=== PATIENT | female | born 1995 | race American Indian/Alaskan Native ===

== ENCOUNTER 2019-01-03 20:09 | Emergency (ER) | payer SELFPAY ==
--- NOTE | 2019-01-03 20:16 | Event Note ---
ED Screening Note Date of service: 01/03/19 Time: 20:15 ED Screening Note: 23 y/o female c/o pain with urination. No vag d/c. LMP 12/11/18. . This initial assessment/diagnostic orders/clinical plan/treatment(s) is/are subject to change based on patients health status, clinical progression and re- assessment by fellow clinical providers in the ED. Further treatment and workup at subsequent clinical providers discretion. Patient/guardian urged not to elope from the ED as their condition may be serious if not clinically assessed and managed. Initial orders include:
[2019-01-03 20:19] VITALS: BP 126/82
[2019-01-03 21:13] LABS: Bilirubin,Urine NEG (Negative); Blood,Urine MOD (Negative); Color,Urine Yellow (Yellow); Mucus,Urine 1+ /HPF
[2019-01-03 21:14] LABS: WBC,Urine > 182.0 /HPF (0.0-6.0)
[2019-01-03 21:15] LABS: HCG Qualitative,Urine Negative (Negative)
--- NOTE | 2019-01-03 21:32 | Emergency Department Report ---
ED Female HPI - General Chief complaint: Urogenital-Female Stated complaint: POSS UTI Time Seen by Provider: 01/03/19 20:14 Source: patient Mode of arrival: Ambulatory Limitations: No Limitations - History of Present Illness Initial comments: pt is a 23 y/o aaf who presents for dysuria frequency and urgency denies vaginal discharge no fever no chills no n/v no back pain or cva tenderness. MD Complaint: dysuria Onset/Timin -: days(s) Severity: moderate Severity scale (0 -10): 3 Quality: other (dysuria ) Consistency: intermittent Improves with: none Worsens with: urination Are you Now?: No Last Menstrual Period: 01/01/19 EDC: 10/08/19 Associated Symptoms: dysuria - Related Data Sexually active: Yes : 1 Para: 1 A: 0 Previous Rx's Medication Instructions Recorded Last Taken Type Ciprofloxacin HCl [Ciprofloxacin 500 mg PO Q12H #20 tab 04/18/18 Unknown Rx TAB] Ibuprofen [Motrin 800 MG tab] 800 mg PO Q8HR PRN #20 tablet 04/18/18 Unknown Rx traMADol [Ultram] 50 mg PO Q6HR PRN #10 tablet 04/18/18 Unknown Rx Nitrofurantoin [place]/M-Cryst 100 mg PO Q12HR 7 Days #14 capsule 01/03/19 Unknown Rx [Macrobid CAP] Phenazopyridine [Pyridium] 100 mg PO TID #6 tab 01/03/19 Unknown Rx Allergies Allergy/AdvReac Type Severity Reaction Status Date / Time No Known Allergies Allergy Unverified 04/18/18 18:00 ED Review of Systems ROS: Stated complaint: POSS UTI Other details as noted in HPI Constitutional: denies: chills, fever Eyes: denies: eye pain, eye discharge, vision change ENT: denies: ear pain, throat pain Respiratory: no symptoms reported Cardiovascular: denies: chest pain, palpitations Endocrine: no symptoms reported Gastrointestinal: denies: abdominal pain, nausea, diarrhea Genitourinary: urgency, dysuria, frequency. denies: hematuria, discharge, abnormal menses, dyspareunia Musculoskeletal: denies: back pain, joint swelling, arthralgia Skin: denies: rash, lesions Neurological: denies: headache, weakness, paresthesias Psychiatric: denies: anxiety, depression Hematological/Lymphatic: denies: easy bleeding, easy bruising ED Past Medical Hx - Past Medical History Previous Medical History?: No - Surgical History Past Surgical History?: No - Social History Smoking Status: Never Smoker Substance Use Type: None - Medications Home Medications: Home Medications Medication Instructions Recorded Confirmed Last Taken Type Ciprofloxacin HCl [Ciprofloxacin 500 mg PO Q12H #20 tab 04/18/18 Unknown Rx TAB] Ibuprofen [Motrin 800 MG tab] 800 mg PO Q8HR PRN #20 tablet 04/18/18 Unknown Rx traMADol [Ultram] 50 mg PO Q6HR PRN #10 tablet 04/18/18 Unknown Rx Nitrofurantoin [place]/M-Cryst 100 mg PO Q12HR 7 Days #14 capsule 01/03/19 Unknown Rx [Macrobid CAP] Phenazopyridine [Pyridium] 100 mg PO TID #6 tab 01/03/19 Unknown Rx ED Physical Exam - General Limitations: No Limitations General appearance: alert, in no apparent distress - Head Head exam: Present: atraumatic, normocephalic - Eye Eye exam: Present: normal appearance, PERRL, EOMI Pupils: Present: normal accommodation - ENT ENT exam: Present: mucous membranes moist - Neck Neck exam: Present: normal inspection, full ROM. Absent: tenderness - Respiratory Respiratory exam: Present: normal lung sounds bilaterally. Absent: respiratory distress, wheezes, stridor - Cardiovascular Cardiovascular Exam: Present: regular rate, normal rhythm, normal heart sounds. Absent: systolic murmur, diastolic murmur, rubs, gallop - GI/Abdominal GI/Abdominal exam: Present: soft, normal bowel sounds. Absent: distended, tenderness, bruit, hernia - Rectal Rectal exam: Present: deferred - External exam: Present: other (deferred by patient ) - Extremities Exam Extremities exam: Present: normal inspection, full ROM, tenderness, normal capillary refill. Absent: calf tenderness - Back Exam Back exam: Present: normal inspection, full ROM. Absent: tenderness, CVA tenderness (R), CVA tenderness (L), muscle spasm, paraspinal tenderness, vertebral tenderness, rash noted - Neurological Exam Neurological exam: Present: alert, oriented X3, CN II-XII intact, normal gait - Psychiatric Psychiatric exam: Present: normal affect, normal mood - Skin Skin exam: Present: warm, dry, intact, normal color. Absent: rash ED Course Vital Signs 01/03/19 20:13 Temperature 98.8 F Pulse Rate 105 H Respiratory 18 Rate Blood Pressure 126/82 O2 Sat by Pulse 97 Oximetry ED Medical Decision Making - Lab Data Labs 01/03/19 20:29 Urine Color Yellow Urine Turbidity Cloudy Urine pH 7.0 Ur Specific [place] 1.020 Urine Protein 100 mg/dl Urine Glucose (UA) Neg Urine Ketones Neg Urine Blood Mod Urine Nitrite Neg Urine Bilirubin Neg Urine Urobilinogen 4.0 Ur Leukocyte Esterase Mod Urine WBC (Auto) > 182.0 H Urine RBC (Auto) 87.0 U Epithel Cells (Auto) 11.0 Ur Transition Epith Cell 2 Urine Mucus 1+ Urine HCG, Qual Negative - Medical Decision Making this is a UTI , pt denies vaginal discharge no vagina bleeding, no n/v no fever or chill no cva tenderness no concern for STI Critical care attestation.: If time is entered above; I have spent that time in minutes in the direct care of this critically ill patient, excluding procedure time. ED Disposition Clinical Impression: UTI (urinary tract infection) Qualifiers: Urinary tract infection type: acute cystitis Hematuria presence: with hematuria Qualified Code(s): N30.01 - Acute cystitis with hematuria Disposition: TO HOME OR SELFCARE Is pt being admited?: No Does the pt Need Aspirin: No Condition: Stable Prescriptions: Nitrofurantoin [place]/M-Cryst [Macrobid CAP] 100 mg PO Q12HR 7 Days #14 capsule Phenazopyridine [Pyridium] 100 mg PO TID #6 tab Referrals: ADRIANA BARRIOS MD [Primary Care Provider] - 3-5 Days Forms: Work/School Release Form(ED) Time of Disposition: 21:37
== END 2019-01-03 21:47 | disposition home or self-care (01) ==
LOC: ED 20:09
DX: N39.0 Urinary tract infection, site not specified (principal); Z79.899 Other long term (current) drug therapy
CPT/HCPCS: 81001; 81025; 99283

== ENCOUNTER 2019-05-20 16:54 | Emergency (ER) | payer MEDICAID ==
[2019-05-20 22:14] VITALS: BP 109/82
[2019-05-20 23:08] LABS: Bilirubin,Urine NEG (Negative); Blood,Urine MOD (Negative); Color,Urine Yellow (Yellow); Mucus,Urine 3+ /HPF; Urobilinogen,Urine < 2.0 mg/dL (<2.0)
[2019-05-20 23:09] LABS: WBC,Urine > 182.0 /HPF (0.0-6.0)
[2019-05-20 23:11] LABS: HCG Qualitative,Urine Negative (Negative)
[2019-05-21] MEDS: IBUPROFEN 600 MG TAB PO ONE (00:09)
[2019-05-21] MEDS: ACETAMINOPHEN 500 MG TAB PO ONE (00:10)
[2019-05-21] MEDS: LIDOCAINE-MPF (1%) 10 MG/1 ML VIAL 5 ML INFILTRATI ONE (00:11)
--- NOTE | 2019-05-21 00:59 | Emergency Department Report ---
ED Female HPI - General Chief complaint: Abdominal Pain Stated complaint: UTI Source: patient Mode of arrival: Ambulatory Limitations: No Limitations - History of Present Illness Initial comments: Patient is a A0 24-year-old -British female with no past medical history who presents to the ED with complaint of acute onset of persistent dysuria, urinary frequency and urgency, low back pain and bilateral flank pain with suprapubic pain for the last 1 week, worse in the last 2 days. Patient admits that she does not drink water but loves sodas. Patient denies vaginal bleeding, vaginal discharge, dyspareunia, nausea, vomiting, diarrhea, dizziness, chest pain, shortness of breath, fever and chills. MD Complaint: dysuria, pelvic pain, other (bilateral lower back pain) -: Sudden, week(s) (1) Location: suprapubic, other (bilateral lower back) Radiation: suprapubic, L flank, R flank Severity: severe Severity scale (0 -10): 7 Quality: sharp, aching Consistency: constant Improves with: none Worsens with: urination, movement Are you Now?: No Last Menstrual Period: 04/28/19 EDC: 02/02/20 Associated Symptoms: denies other symptoms, abdominal pain (suprapubic), dysuria. denies: vaginal discharge, vaginal bleeding, nausea/vomiting, fever/chills, headaches, loss of appetite, hematuria, rash, seizure, shortness of breath, syncope, weakness - Related Data Sexually active: Yes : 1 Para: 1 A: 0 Previous Rx's Medication Instructions Recorded Last Taken Type Ciprofloxacin HCl [Ciprofloxacin 500 mg PO Q12H #20 tab 04/18/18 Unknown Rx TAB] Ibuprofen [Motrin 800 MG tab] 800 mg PO Q8HR PRN #20 tablet 04/18/18 Unknown Rx traMADoL [Ultram] 50 mg PO Q6HR PRN #10 tablet 04/18/18 Unknown Rx Nitrofurantoin [place]/M-Cryst 100 mg PO Q12HR 7 Days #14 capsule 01/03/19 Unknown Rx [Macrobid CAP] Phenazopyridine [Pyridium] 100 mg PO TID #6 tab 01/03/19 Unknown Rx Ibuprofen [Motrin] 600 mg PO Q8H PRN #20 tablet 05/21/19 Unknown Rx Phenazopyridine [Pyridium] 200 mg PO Q8H PRN #21 tab 05/21/19 Unknown Rx cephALEXin [Keflex] 500 mg PO Q6HR #40 capsule 05/21/19 Unknown Rx Allergies Allergy/AdvReac Type Severity Reaction Status Date / Time No Known Allergies Allergy Unverified 04/18/18 18:00 ED Review of Systems ROS: Stated complaint: UTI Other details as noted in HPI Constitutional: denies: chills, fever Eyes: denies: eye pain, eye discharge, vision change ENT: denies: ear pain, throat pain Respiratory: denies: cough, shortness of breath, wheezing Cardiovascular: denies: chest pain, palpitations Endocrine: no symptoms reported Gastrointestinal: abdominal pain (suprapubic). denies: nausea, diarrhea Genitourinary: urgency, dysuria, frequency, other (suprapubic pain). denies: discharge, abnormal menses, dyspareunia Musculoskeletal: denies: back pain, joint swelling, arthralgia Skin: denies: rash, lesions Neurological: denies: headache, weakness, paresthesias Psychiatric: denies: anxiety, depression Hematological/Lymphatic: denies: easy bleeding, easy bruising ED Past Medical Hx - Past Medical History Previous Medical History?: Yes Hx Psychiatric Treatment: Yes (bipolar) - Surgical History Past Surgical History?: No - Social History Smoking Status: Never Smoker Substance Use Type: None - Medications Home Medications: Home Medications Medication Instructions Recorded Confirmed Last Taken Type Ciprofloxacin HCl [Ciprofloxacin 500 mg PO Q12H #20 tab 04/18/18 Unknown Rx TAB] Ibuprofen [Motrin 800 MG tab] 800 mg PO Q8HR PRN #20 tablet 04/18/18 Unknown Rx traMADoL [Ultram] 50 mg PO Q6HR PRN #10 tablet 04/18/18 Unknown Rx Nitrofurantoin [place]/M-Cryst 100 mg PO Q12HR 7 Days #14 capsule 01/03/19 Unknown Rx [Macrobid CAP] Phenazopyridine [Pyridium] 100 mg PO TID #6 tab 01/03/19 Unknown Rx Ibuprofen [Motrin] 600 mg PO Q8H PRN #20 tablet 05/21/19 Unknown Rx Phenazopyridine [Pyridium] 200 mg PO Q8H PRN #21 tab 05/21/19 Unknown Rx cephALEXin [Keflex] 500 mg PO Q6HR #40 capsule 05/21/19 Unknown Rx ED Physical Exam - General Limitations: No Limitations General appearance: alert, in no apparent distress - Head Head exam: Present: atraumatic, normocephalic - Eye Eye exam: Present: normal appearance, PERRL, EOMI Pupils: Present: normal accommodation - ENT ENT exam: Present: normal exam, normal orophraynx, mucous membranes moist, TM's normal bilaterally, normal external ear exam - Neck Neck exam: Present: normal inspection, full ROM - Respiratory Respiratory exam: Present: normal lung sounds bilaterally. Absent: respiratory distress, wheezes, rales, rhonchi, chest wall tenderness, accessory muscle use, decreased breath sounds - Cardiovascular Cardiovascular Exam: Present: regular rate, normal rhythm, normal heart sounds. Absent: systolic murmur, diastolic murmur, rubs, gallop - GI/Abdominal GI/Abdominal exam: Present: soft, tenderness (suprapubic), normal bowel sounds. Absent: guarding, rebound, hyperactive bowel sounds - Extremities Exam Extremities exam: Present: normal inspection, full ROM, normal capillary refill - Back Exam Back exam: Present: normal inspection, full ROM. Absent: tenderness, muscle spasm, paraspinal tenderness, vertebral tenderness - Neurological Exam Neurological exam: Present: alert, oriented X3, CN II-XII intact, normal gait, reflexes normal - Psychiatric Psychiatric exam: Present: normal affect, normal mood - Skin Skin exam: Present: warm, dry, intact, normal color. Absent: rash ED Course Vital Signs 05/20/19 17:50 Temperature 98.3 F Pulse Rate 100 H Respiratory 18 Rate Blood Pressure 109/82 O2 Sat by Pulse 100 Oximetry ED Medical Decision Making - Medical Decision Making This is a A0 24-year-old female who presented to the ED with dysuria, urinary frequency and urgency, suprapubic pressure and low back pain with hematuria for the last 1 week. In the ED: The patient is alert and oriented 3 and is in distress. Urinalysis shows significant urinary tract infection with hematuria. The patient was too thin to ED with Rocephin 1 g intramuscular injection. Patient was discharged home on antibiotics and pain medications and is advised to follow-up with her primary care physician in 7-10 days for reevaluation. Patient is encouraged to drink plenty of fluids as a habit to prevent frequent UTIs. - Differential Diagnosis UTI; Ovarian cysts; STD; kidney stones Critical care attestation.: If time is entered above; I have spent that time in minutes in the direct care of this critically ill patient, excluding procedure time. ED Disposition Clinical Impression: Acute urinary tract infection, Acute suprapubic pain Disposition: TO HOME OR SELFCARE Is pt being admited?: No Does the pt Need Aspirin: No Condition: Stable Instructions: Abdominal Pain (ED), Urinary Tract Infection in Women (ED) Additional Instructions: Take medications with food, drink plenty of fluids and follow-up with your primary care physician in 5-7 days for reevaluation. Return to the ED immediately if symptoms get worse. Prescriptions: cephALEXin [Keflex] 500 mg PO Q6HR #40 capsule Ibuprofen [Motrin] 600 mg PO Q8H PRN #20 tablet PRN Reason: Pain Phenazopyridine [Pyridium] 200 mg PO Q8H PRN #21 tab PRN Reason: dysuria Referrals: RADHA MEZA MD [Primary Care Provider] - 3-5 Days Time of Disposition: 01:00 Print Language: MONEGASQUE
== END 2019-05-21 01:10 | disposition home or self-care (01) ==
LOC: ED 16:54
DX: N39.0 Urinary tract infection, site not specified (principal); R10.30 Lower abdominal pain, unspecified; F31.9 Bipolar disorder, unspecified; Z79.1 Long term (current) use of non-steroidal anti-inflammatories (NSAID); Z79.899 Other long term (current) drug therapy
CPT/HCPCS: 81001; 81025; 96372; 99283; J0696

== ENCOUNTER 2020-05-11 18:31 | Outpatient (CLI) | payer MEDICAID ==
[2020-05-11 19:20] VITALS: BP 119/70
--- NOTE | 2020-05-11 21:28 | Ultrasound Report ---
ULTRASOUND OBSTETRIC LIMITED ULTRASOUND BIOPHYSICAL PROFILE INDICATION / CLINICAL INFORMATION: BPP. Clinical Gestational Age (GA): 37 weeks. 2 days COMPARISON: None available. FINDINGS: BREATHING MOVEMENT = 2 GROSS BODY MOVEMENT = 2 TONE = 2 QUALITATIVE AMNIOTIC FLUID VOLUME = 2 TOTAL BIOPHYSICAL SCORE = 8/8 HEART RATE (beats per minute): 129 AMNIOTIC FLUID INDEX (cm) = 9.4 (normal = 7-24 cm) PRESENTATION: Cephalic. ADDITIONAL FINDINGS: None. IMPRESSION: 1. Biophysical Score = 8/8 Signer Name: Eagle Ventura MD Signed: 05/11/2020 9:24 PM Workstation Name: [id number]
== END 2020-05-11 20:45 | disposition home or self-care (01) ==
LOC: TRG 18:31 → APU 18:33 → TRG 20:45
PROVIDERS: ATTEND Obstetrics & Gynecology
DX: O42.92 Full-term premature rupture of membranes, unspecified as to length of time between rupture and onset of labor (principal); Z3A.37 37 weeks gestation of pregnancy
CPT/HCPCS: 59025; 76815; 76819

== ENCOUNTER 2021-01-23 20:48 | Emergency (ER) | payer MEDICAID | END 2021-01-24 03:33 | disposition left against medical advice (07) | LOC: ED 20:48 | DX: R52 Pain, unspecified (principal); Z53.21 Procedure and treatment not carried out due to patient leaving prior to being seen by health care provider ==

== ENCOUNTER 2021-07-16 17:09 | Outpatient (CLI) | payer MEDICAID ==
[2021-07-16 17:55] VITALS: BP 124/70
== END 2021-07-16 18:30 | disposition home or self-care (01) ==
LOC: TRG 17:09 → APU 17:09 → TRG 18:30
PROVIDERS: ATTEND Obstetrics & Gynecology
DX: Z34.93 Encounter for supervision of normal pregnancy, unspecified, third trimester (principal); Z3A.38 38 weeks gestation of pregnancy
CPT/HCPCS: 59025

== ENCOUNTER 2021-07-20 16:08 | Outpatient (CLI) | payer MEDICAID ==
[2021-07-20 16:47] VITALS: BP 109/68
--- NOTE | 2021-07-20 18:56 | Ultrasound Report ---
ULTRASOUND OBSTETRIC LIMITED ULTRASOUND BIOPHYSICAL PROFILE INDICATION / CLINICAL INFORMATION: MEASURING 39CM - FOR DATES - BPP. Clinical Gestational Age (GA) in weeks, days: 39, 1 TECHNIQUE: Transabdominal. COMPARISON: None available. FINDINGS: BREATHING MOVEMENT = 2 GROSS BODY MOVEMENT = 2 TONE = 2 QUALITATIVE AMNIOTIC FLUID VOLUME = 2 TOTAL BIOPHYSICAL SCORE = 8/8 HEART RATE (beats per minute): 120 AMNIOTIC FLUID INDEX (cm) = 10.3 (normal = 7-24 cm) PRESENTATION: Cephalic. ADDITIONAL FINDINGS: age by ultrasound is 38 weeks 6 days. Estimated weight is 3753 g. IMPRESSION: 1. Biophysical Score = 8/8 . 2. Viable intrauterine dated 38 weeks 6 days by ultrasound. Signer Name: Enrrique Canales MD Signed: 07/20/2021 6:52 PM Workstation Name: [id number]
== END 2021-07-20 18:20 | disposition home or self-care (01) ==
LOC: TRG 16:08 → APU 16:10 → TRG 18:20
PROVIDERS: ATTEND Obstetrics & Gynecology
DX: Z34.93 Encounter for supervision of normal pregnancy, unspecified, third trimester (principal); Z3A.39 39 weeks gestation of pregnancy
CPT/HCPCS: 76816; 76819

== ENCOUNTER 2021-07-21 03:31 | Outpatient (CLI) | payer MEDICAID ==
[2021-07-21 04:26] VITALS: BP 116/71
== END 2021-07-21 04:47 | disposition home or self-care (01) ==
LOC: TRG 03:31 → APU 03:35 → TRG 04:47
PROVIDERS: ATTEND Obstetrics & Gynecology Gynecology
DX: Z34.93 Encounter for supervision of normal pregnancy, unspecified, third trimester (principal); Z3A.39 39 weeks gestation of pregnancy
CPT/HCPCS: 59025

== ENCOUNTER 2021-07-21 09:06 | Inpatient (IN) | payer MEDICAID ==
[2021-07-21] MEDS ORDERED: AMPICILLIN/NS 2 GM/100 ML 2 GM/100 ML BAG IV ONE (10:11)
--- NOTE | 2021-07-21 10:23 | History and Physical Report ---
History of Present Illness Date of examination: 07/21/21 Date of admission: 07/21/21 Chief complaint: Contractions History of present illness: 26 year old presents to L&D with complaint of contractions. Patient denies LOF or VB. Patient reports she receives care at [facility]. LMP 10/20/20. EDC 07/27/21. significant for the following: GBS positive, anemia, asthma, close spacing, false positive RPR, genital herpes (on Valtrex suppression), left breast nodule, rubella nonimmune, SMA carrier, depression/history of PPD (was started on Zoloft 2 weeks ago). labs are as follows: B+, antibody screen negative, rubella nonimmune (equivocal), hepatitis B surface antigen negative, RPR reactive (1:1), HIV nonreactive, 1 hour sugar test 100, OSB negative, materniT 21 low risk, gonorrhea negative, chlamydia negative, trichomonas negative, GBS positive. Past History Past Medical History: asthma, other (history of blood transfusion, genital herpes, depression/PPD, left breast nodule) Past Surgical History: no surgical history [facility] History: herpes (no history of outbreaks, has been taking Valtrex suppression since 06/22/21). denies: chlamydia, gonorrhea, hepatitis B, hepatitis C, HIV, syphilis (history of false positive RPR during ), trichomonas Family/Genetic History: hypertension Social history: lives with family, full code. denies: smoking, alcohol abuse, prescription drug abuse, IV drug use - Obstetrical History Expected Date of Delivery: 07/27/21 Actual Gestation: 39 Week(s) 1 Day(s) : 4 Para: 2 Hx # Term Pregnancies: 2 Number of Pregnancies: 0 Spontaneous Abortions: 0 Induced : 1 Number of Living Children: 2 Medications and Allergies Allergies Allergy/AdvReac Type Severity Reaction Status Date / Time No Known Allergies Allergy Verified 07/16/21 17:51 Active Meds: Active Medications Acetaminophen (Acetaminophen 325 Mg Tab) 650 mg PO Q4H PRN PRN Reason: Pain, Mild (1-3) Carboprost Tromethamine (Carboprost Tromethamine 250 Mcg/1 Ml Inj) 250 mcg IM ONCE PRN PRN Reason: Uterine Bleeding Ephedrine Sulfate (Ephedrine Sulfate 50 Mg/1 Ml Inj) 10 mg IV Q2M PRN PRN Reason: Hypotension Fentanyl (Fentanyl 100 Mcg/2 Ml Inj) 100 mcg IV Q2H PRN PRN Reason: Pain,Severe (7-10) LABOR PAIN Lactated Ringer's (Lactated Ringers) 1,000 mls @ 125 mls/hr IV DIRECT ANDREA Oxytocin/Sodium Chloride (Pitocin/Ns 30 Unit/500ml) 30 units in 500 mls @ 40 mls/hr IV TITR ANDREA; Protocol Ampicillin Sodium (Ampicillin/Ns 2 Gm/100 Ml) 2 gm in 100 mls @ 100 mls/hr IV ONCE ONE; Protocol Stop: 07/21/21 11:10 Ampicillin Sodium (Ampicillin/Ns 1 Gm/50 Ml) 1 gm in 50 mls @ 100 mls/hr IV Q4H ANDREA; Protocol Lidocaine (Lidocaine (2%) 20 Mg/1 Ml Vial 20 Ml Mdv) 20 ml INFILTRATI ONCE ONE Stop: 07/21/21 10:12 Loperamide HCl (Loperamide 2 Mg Cap) 2 mg PO ONCE PRN PRN Reason: give with Hemabate Methylergonovine Maleate (Methylergonovine Maleate 0.2 Mg/Ml Vial) 0.2 mg IM ONCE PRN PRN Reason: Uterine Bleeding Misoprostol (Misoprostol 200 Mcg Tab) 800 mcg ME ONCE PRN PRN Reason: Uterine Bleeding Nalbuphine HCl (Nalbuphine 10 Mg/1 Ml Inj) 10 mg IV Q2H PRN PRN Reason: Pain, Moderate (4-6) Ondansetron HCl (Ondansetron 4 Mg/2 Ml Inj) 4 mg IV Q8H PRN PRN Reason: Nausea And Vomiting Oxytocin (Oxytocin 10 Unit/1 Ml Inj) 10 unit IM ONCE PRN PRN Reason: Uterine Bleeding Terbutaline Sulfate (Terbutaline 1 Mg/1 Ml Inj) 0.25 mg SUB-Q ONCE PRN PRN Reason: Hyperstimulation/Hypertonicity Review of Systems All systems: negative (contractions) - Vital Signs Vital signs: Vital Signs Temp Pulse Resp BP Pulse Ox 98.1 F 94 H 20 128/81 100 07/21/21 09:26 07/21/21 09:26 07/21/21 09:26 07/21/21 09:26 07/21/21 09:26 Temp Pulse Resp BP Pulse Ox 98.1 F 95 H 20 128/81 85 07/21/21 09:26 07/21/21 10:01 07/21/21 09:26 07/21/21 09:29 07/21/21 10:01 - Physical Exam Abdomen: Positive: normal appearance, soft. Negative: distention, tenderness, guarding, rigidity Genitourinary (Female): Positive: normal external genitalia, normal perenium. Negative: perineal/vulvar lesions Vagina: Positive: normal moisture Uterus: Positive: enlarged. Negative: tender Anus/Rectum: Positive: normal perianal skin Extremities: Negative: tenderness - Obstetrical FHR: category 2 Uterine Contraction Monitor Mode: External Cervical Dilatation: 5 Cervical Effacement Percentage: 90 (cephalic) station: -2 Results All other labs normal. Assessment and Plan A: at 39 weeks, 1 day gestation. Active labor. GBS positive. HSV 2 positive serology (no lesions or prodromal symptoms). P: Admit. Continuous EFM. GBS prophylaxis. Continue Valtrex for HSV suppression.
[2021-07-21] MEDS ORDERED: ONDANSETRON 4 MG/2 ML INJ IV PRN (10:30)
[2021-07-21] MEDS ORDERED: NalbUPHINE 10 MG/1 ML INJ IV PRN (10:30)
[2021-07-21] MEDS ORDERED: METHYLERGONOVINE MALEATE 0.2 MG/ML VIAL IM PRN (10:30)
[2021-07-21] MEDS ORDERED: fentaNYL 100 MCG/2 ML INJ IV PRN (10:30)
[2021-07-21] MEDS ORDERED: ePHEDrine SULFATE 50 MG/1 ML INJ IV PRN (10:30)
[2021-07-21] MEDS ORDERED: miSOPROStol 200 MCG TAB PR PRN (10:30)
[2021-07-21] MEDS ORDERED: LOPERAMIDE 2 MG CAP PO PRN (10:30)
[2021-07-21] MEDS ORDERED: LIDOCAINE (2%) 20 MG/1 ML VIAL 20 ML MDV INFILTRATI NR (10:30)
[2021-07-21] MEDS ORDERED: CARBOPROST TROMETHAMINE 250 MCG/1 ML INJ IM PRN (10:30)
[2021-07-21] MEDS ORDERED: TERBUTALINE 1 MG/1 ML INJ SUB-Q PRN (11:00)
[2021-07-21] MEDS ORDERED: valACYclovir 500 MG TAB PO SCH (11:00)
[2021-07-21] MEDS ORDERED: ACETAMINOPHEN 325 MG TAB PO PRN (11:00)
[2021-07-21] MEDS ORDERED: OXYTOCIN DRIP 30 UNITS/500 ML BAG IV SCH (11:00)
[2021-07-21] MEDS ORDERED: LACTATED RINGERS 1,000 ML IV SCH (11:00)
[2021-07-21] MEDS: OXYTOCIN 10 UNIT/1 ML INJ IM PRN ×2 (11:25→11:42)
[2021-07-21 11:28] LABS: Mean Corpuscular HGB Conc 30 % (30-34); Platelet Count 297 K/mm3 (140-440); Red Blood Count 4.54 M/mm3 (3.65-5.03)
[2021-07-21 11:52] LABS: Hematocrit 31.3 % (30.3-42.9); Hemoglobin 9.3 gm/dl (10.1-14.3); Mean Corpuscular Volume 69 fl (79-97); Red Cell Distribution Width 22.3 % (13.2-15.2)
[2021-07-21] MEDS ORDERED: LANOLIN/ZINC/DIMETHICONE (LANSINOH) 7 GM TP PRN ×2 (12:03)
[2021-07-21] MEDS ORDERED: MAGNESIUM HYDROXIDE (MOM) ORAL LIQD UDC PO PRN (12:03)
[2021-07-21] MEDS ORDERED: BENZOCAINE/MENTHOL 20/0.5% TOP SPRAY 56 GM TP PRN (12:03)
[2021-07-21] MEDS ORDERED: WITCH HAZEL/ GLYCERIN PAD TP PRN (12:03)
--- NOTE | 2021-07-21 12:16 | Procedure Note ---
OB Delivery Note - Delivery Date of Delivery: 07/21/21 Surgeon: AUSTIN WILCOX Estimated blood loss: 300cc - Vaginal Delivery presentation: vertex Delivery position: OA Intrapartum events: precipitous labor- <3hr Delivery induction: none Delivery monitor: external FHT, external uterine Route of delivery: Delivery placenta: spontaneous Delivery cord: nuchal cord, 3 umbilical vessels Delivery laceration: 1st degree Delivery repair: vicryl Anesthesia: local Delivery comments: Precipitous spontaneous vaginal delivery of liveborn male infant weighing 7 lb. 4 oz. at 11:17 over first degree perineal laceration with apgars of 8/9. Loose nuchal cord times 1, manually reduced. Suprapubic pressure given to assist delivery of anterior shoulder due to no maternal pushing efforts after delivery of head. Baby placed skin to skin with mom immediately after delivery. Spontaneous cry and respirations. Baby dried and suctioned with bulb syringe. 3 vessel cord double clamped and cut and baby taken to radiant warmer for further suctioning and evaluation. Spontaneous delivery of intact placenta and membranes at 11:20. EBL 300 cc. IM Pitocin given since patient did not have a working IV. Cytotec 800 micrograms given rectally. Fundus firm and midline at 2 FB below umbilicus. Small first degree perineal laceration repaired with 2-0 vicryl under lidocaine local. Small left labial laceration noted but was not bleeding and patient refused repair of labial laceration. No other lacerations noted. Vaginal sweep negative. Sponge count correct. Mother and baby stable in birthing room.
[2021-07-21] MEDS: HYDROcodone/ACETAMINOPHEN 5-325 MG TAB PO PRN ×2 (13:31→19:24)
[2021-07-21] MEDS ORDERED: AMPICILLIN/NS 1 GM/50 ML 1 GM/50 ML BAG IV SCH (15:00)
[2021-07-21] MEDS: IBUPROFEN 800 MG TAB PO SCH ×2 (17:09→23:39)
[2021-07-21] MEDS: DOCUSATE SODIUM 100 MG CAP PO SCH ×2 (18:15→23:39)
[2021-07-21] MEDS: FERROUS SULFATE 325 MG TAB PO SCH ×2 (19:27→23:39)
[2021-07-22] MEDS: IBUPROFEN 800 MG TAB PO SCH ×3 (01:00→13:43)
[2021-07-22 03:44] LABS: Hematocrit 30.7 % (30.3-42.9); Hemoglobin 9.1 gm/dl (10.1-14.3)
--- NOTE | 2021-07-22 06:08 | Progress Note ---
Assessment and Plan PPD#1 doing fair 1. routine care and pt told to change her pad at least every 3-4hrs to evaluate her bleeding and hygienic needs 2. Will discharge home tomorrow if pt remains stable Subjective Date of service: 07/22/21 Principal diagnosis: PPD#1 Interval history: Pt states she is tired and wants to sleep some more. pt is bottle feeding. Denies pelvic pain. Pt has not changed her pad all night. Objective - Constitutional Vitals: Vital Signs - 12hr 07/21/21 07/21/21 07/21/21 20:24 20:27 20:40 Temperature 98.5 F Pulse Rate 85 Respiratory 18 20 Rate Blood Pressure 125/71 O2 Sat by Pulse 98 Oximetry O2 Sat by Pulse 100 Oximetry [ Bilateral] 07/21/21 07/22/21 07/22/21 23:39 00:30 00:39 Temperature 98.3 F Pulse Rate 75 Respiratory 18 20 18 Rate Blood Pressure 100/60 O2 Sat by Pulse 95 Oximetry O2 Sat by Pulse Oximetry [ Bilateral] General appearance: Present: no acute distress - Neck Neck: normal ROM - Respiratory Respiratory effort: normal - Breasts Breasts: deferred - Cardiovascular Rhythm: regular Extremities: No edema - Gastrointestinal General gastrointestinal: Present: soft, non-tender - Genitourinary Female genitourinary: other (Fundus firm 1cm below the umbilicus; lochia moderate) - Integumentary Integumentary: warm - Neurologic Neurologic: moves all extremities - Psychiatric Psychiatric: cooperative - Labs CBC & Chem 7: 07/22/21 01:59 Labs: Abnormal lab results 07/21/21 07/22/21 Range/Units 10:00 01:59 Hgb 9.3 L 9.1 L (10.1-14.3) gm/dl MCV 69 L (79-97) fl MCH 21 L (28-32) pg RDW 22.3 H (13.2-15.2) % Medications & Allergies - Medications Allergies/Adverse Reactions: Allergies No Known Allergies Allergy (Verified 07/16/21 17:51) Home Medications: Home Medications Medication Instructions Recorded Confirmed Last Taken Type No Known Home Medications [No 07/21/21 07/21/21 Unknown History Reported Home Medications] Active Medications: Generic Name Dose Route Start Last Admin Trade Name Freq PRN Reason Stop Dose Admin Hydrocodone Bitart/Acetaminophen 2 each 07/21/21 12:03 07/21/21 19:24 Hydrocodone/Acetaminophen 5-325 Mg Tab PO 2 each Q6H PRN Administration Pain, Moderate (4-6) Benzocaine/Menthol 1 spray 07/21/21 12:03 07/21/21 21:30 Benzocaine/Menthol 20/0.5% Top Lutz 56 Gm TP 1 spray PRN PRN Administration Episiotomy Pain Docusate Sodium 100 mg 07/21/21 13:00 07/21/21 23:39 Docusate Sodium 100 Mg Cap PO 100 mg BID ANDREA Administration Ferrous Sulfate 325 mg 07/21/21 13:00 07/21/21 23:39 Ferrous Sulfate 325 Mg Tab PO 325 mg BID ANDREA Administration Ibuprofen 800 mg 07/21/21 13:00 07/21/21 23:39 Ibuprofen 800 Mg Tab PO 800 mg Q6H ANDREA Administration Magnesium Hydroxide 30 ml 07/21/21 12:03 Magnesium Hydroxide (Mom) Oral Liqd Udc PO HS PRN Constipation Multi-Ingredient Ointment 1 applic 07/21/21 12:03 Lanolin/Zinc/Dimethicone (Lansinoh) 7 Gm TP PRN PRN dryness/cracking Sodium Chloride 10 ml 07/21/21 13:00 Sodium Chloride 0.9% 10 Ml Flush Syringe IV PRN ANDREA Witch Evelyn/Glycerin 1 each 07/21/21 12:03 07/21/21 21:30 Witch Evelyn/ Glycerin Pad TP 1 each PRN PRN Administration Hemorrhoid/cleansing/soothing
[2021-07-22] MEDS: FERROUS SULFATE 325 MG TAB PO SCH (10:42)
[2021-07-22] MEDS: DOCUSATE SODIUM 100 MG CAP PO SCH (10:42)
[2021-07-23] MEDS: DOCUSATE SODIUM 100 MG CAP PO SCH ×2 (00:13→09:08)
[2021-07-23] MEDS: FERROUS SULFATE 325 MG TAB PO SCH ×2 (00:13→09:07)
[2021-07-23] MEDS: IBUPROFEN 800 MG TAB PO SCH ×3 (00:14→09:07)
--- NOTE | 2021-07-23 11:06 | Progress Note ---
Assessment and Plan A: day 2 S/P . Anemia. P: Discharge patient home today. Discussed with patient discharge instructions and warning signs. Advised patient to continue to take iron supplements at home (Rx written and left on chart). Advised patient to avoid intercourse, housework, lifting. Advised patient to follow up at [facility] in 2 weeks. Patient voiced understanding. Subjective - Subjective Date of service: 07/23/21 Principal diagnosis: PPD#2 Patient reports: appetite normal, voiding normally, pain well controlled, flatus, ambulating normally, no dizzy ambulation, no nauseated : doing well, bottle feeding Objective - Vital Signs Latest vital signs: Vital Signs Temp Pulse Resp BP BP Pulse Ox Pulse Ox 07/23/21 09:14 98 07/23/21 08:25 98.4 F 68 18 115/76 98 07/23/21 07:37 98.5 F 18 98 07/23/21 07:26 71 98 07/23/21 07:25 114/73 07/23/21 01:25 98.6 F 74 18 105/60 100 07/23/21 01:14 18 07/23/21 01:00 18 07/23/21 00:14 18 07/22/21 20:00 100 07/22/21 15:31 98.4 F 79 18 110/69 98 Intake and Output 07/22/21 07/23/21 07/23/21 22:59 07:59 15:59 Intake Total 320 Balance 320 Intake: Oral 320 Intake, Free Water Other: Total, Intake Amount 320 # Voids Void 1 - Exam Cardiovascular: Present: Regular rate, No murmurs Lungs: Present: Clear to auscultation Abdomen: Present: normal appearance, soft. Absent: distention, tenderness, guarding, rigidity Uterus: Present: normal, firm, fundal height below umbilicus (fundus firm and midline at 2 FB below umbilicus). Absent: bogginess, tenderness Extremities: Absent: tenderness
--- NOTE | 2021-07-23 11:12 | Discharge Summary ---
Providers - Providers Date of Admission: 07/21/21 09:07 Date of discharge: 07/23/21 Attending physician: PAVAN ROSEN Primary care physician: PAVAN ROSEN Hospitalization Reason for admission: active labor Delivery: Laceration: 1st degree Other procedures: none complications: none Discharge diagnosis: IUP at term delivered baby: male Pertinent studies: Labs Hospital course: Stable hospital course Condition at discharge: Good Disposition: 01 HOME / SELF CARE / HOMELESS - Discharge Diagnoses (1) Term Status: Acute (2) Anemia Status: Acute Plan - Discharge Medications Prescriptions: Ferrous Sulfate [Iron 325 MG] 325 mg PO Q12H 30 Days #60 - Provider Discharge Summary Activity: routine, no sex for 6 weeks, no heavy lifting 4 weeks, no strenuous exercise Diet: routine Instructions: routine Additional instructions: Continue taking your iron supplements at home. Follow up at [facility] in 2 weeks. Call your doctor immediately for: * Fever > 100.5 * Heavy vaginal bleeding ( >1 pad per hour) * Severe persistent headache * Shortness of breath * Reddened, hot, painful area to leg or breast - Follow up plan Follow up: PAVAN ROSEN MD [Primary Care Provider] - 14 Days Forms: [facility] Discharge Summary
[2021-07-23] MEDS: HYDROcodone/ACETAMINOPHEN 5-325 MG TAB PO PRN (11:31)
[2021-07-23 13:17] VITALS: BP 109/73
== END 2021-07-23 12:50 | disposition home or self-care (01) | DRG 774 ==
LOC: TRG 09:06 → APU 09:07 → TRG 10:17 → LD 10:54 → OB 14:38
PROVIDERS: ADMIT Obstetrics & Gynecology; ATTEND Obstetrics & Gynecology
PROC: 10E0XZZ Delivery of Products of Conception, External Approach (ICD-10-PCS; principal; 2021-07-21)
PROC: 0HQ9XZZ Repair Perineum Skin, External Approach (ICD-10-PCS; 2021-07-21)
DX: O98.32 Other infections with a predominantly sexual mode of transmission complicating childbirth (principal); Z37.0 Single live birth; A60.00 Herpesviral infection of urogenital system, unspecified; Z3A.39 39 weeks gestation of pregnancy; O99.824 Streptococcus B carrier state complicating childbirth; O99.52 Diseases of the respiratory system complicating childbirth; J45.909 Unspecified asthma, uncomplicated; O99.344 Other mental disorders complicating childbirth; F32.9 Major depressive disorder, single episode, unspecified; O62.3 Precipitate labor; O69.81X0 Labor and delivery complicated by cord around neck, without compression, not applicable or unspecified; O70.0 First degree perineal laceration during delivery; O90.81 Anemia of the puerperium
CPT/HCPCS: 36415; 59025; 76816; 76819; 85014; 85018; 85027; 86592; 86780; 86850; 86900; 86901; G0378; J2590; J3010